=== PATIENT | male | born 2000 | race Caucasian/White ===

== ENCOUNTER 2022-03-22 10:27 | Emergency (ER) | payer SELFPAY ==
[2022-03-22 10:33] VITALS: PULSE 113; RESP 18; TEMP 36.6; O2SAT 97; BMI 25.8
[2022-03-22 15:06] LABS: Basophils # 0.1 10^3/uL (0.0-0.1); Basophils % 0.7 %; Eosinophils % 0.4 %; Hematocrit 46.5 % (42.0-52.0); Hemoglobin 15.3 g/dL (11.7-16.6); Lymphocytes # 1.8 10^3/uL (0.8-4.8); Lymphocytes % 26.3 %; Mean Corpuscular HGB Conc 32.9 g/dL (30.0-36.0); Mean Corpuscular Hemoglobin 28.8 pg (28.0-34.0); Mean Corpuscular Volume 87.4 fl (80-94); Mean Platelet Volume 11.6 fL (7.4-10.4); Monocytes # 0.2 10^3/uL (0.2-0.9); Monocytes % 3.2 %; Neutrophils % 69.3 %; Nucleated Red Blood Cells % 0 %; Platelet Count 237 10^3/cmm (130-400); Red Blood Count 5.32 10^6/uL (4.1-5.3); Red Cell Distribution Width 12.5 % (12.1-15.1); White Blood Count 6.8 10^3/uL (4.0-10.0)
--- NOTE | 2022-03-22 15:13 | PC.NURSE ---
Provider at bedside. Pt sitting up in chair.
[2022-03-22 15:17] VITALS: BP 143/98; PULSE 102; RESP 17; TEMP 36.7
--- NOTE | 2022-03-22 15:17 | W.ED.GENADLT ---
HPI - General Adult General: Chief complaint: Nausea/Vomiting/Diarrhea Stated complaint: substance abuse Time Seen by Provider: 03/22/22 15:09 Source: patient Mode of arrival: ambulatory Limitations: no limitations History of Present Illness: Patient is a 21-year-old male with a longstanding history of fentanyl use here with complaints of opiate withdrawal. Patient states he is feeling restless, is having trouble sleeping, and feels anxious. Patient states he is not having any abdominal pain, vomiting, diarrhea. Vitals upon arrival show some mild tachycardia and very mild hypertension at 140s/90s. Patient states he is not interested in a substance abuse rehabilitation at this time stating that he cannot miss that much work. Last opiate use was approximately 48 hours ago. Onset (ago): day(s) Severity: mild Pain Consistency: constant Associated symptoms: Deny chest pain, dyspnea, headache(s), malaise, nausea, rash, palpitations, syncope or vomiting Treatments prior to arrival: none Review of Systems Const: Denies: fever(s), chills, body aches, fatigue or malaise Eyes: Denies: change in vision or blurry vision Card: Denies: chest pain, palpitations, irregular heart rhythm, lightheadedness, syncope or dyspnea on exertion Resp: Denies: dyspnea, productive cough or pain on inspiration GI: Denies: abdominal pain, nausea, vomiting, heartburn or diarrhea : Denies: difficulty urinating or dysuria Musc: Denies: neck pain, back pain, extremity pain or joint pain Skin/Breast: Denies: rash Neuro: Reports: restless legs; Denies: headache(s), numbness in extremities, weakness in extremities, sensory changes or dizziness Psych: Reports: anxiety PFSH ED PFSH: Medical History No pertinent past medical history Social History Substance/Drug Use: current Physical Exam Const: COMMON NORMALS: no acute distress, average body habitus, patient oriented x3, no limitations, healthy appearing, alert and well nourished GENERAL APPEARANCE: cooperative ORIENTATION/CONSCIOUSNESS: Yes awake, Yes oriented to person, Yes oriented to place and Yes oriented to time HENMT: COMMON NORMALS: normocephalic and atraumatic HEAD & SCALP: normal to inspection, normocephalic and atraumatic Neck/C-Spine: COMMON NORMALS: full ROM, no lymphadenopathy, supple and no meningeal signs Chest: COMMONS NORMALS: normal inspection of the chest Resp: COMMON NORMALS: normal respiratory effort and clear to auscultation bilaterally AUSCULTATION: clear to auscultation bilaterally Cardio: COMMON NORMALS: regular rate and regular rhythm RATE: regular rate RHYTHM: regular rhythm GI: COMMON NORMALS: Normal to inspection, nondistended, normoactive bowel sounds present, Soft to palpation, non-tender, No hepatosplenomegaly present and no masses PALPATION: Yes Soft to palpation and Yes No hepatosplenomegaly present : COMMON NORMALS: Yes no CVA tenderness BLADDER/KIDNEY EXAM: Yes no CVA tenderness Back/Pelvis: COMMON NORMALS: no CVA tenderness and thoracic and lumbar spine normal to inspection Extremity: COMMON NORMALS: normal to inspection GENERAL: Yes normal exam except as noted Neuro: [place] COMA SCALE: document GCS findings [place] coma scale eye opening: Spontaneous [place] coma scale verbal response: Orientated [place] coma scale motor response: Obey commands [place] coma scale total score: 15 COMMON NORMALS: patient oriented x3, CN's II-XII intact bilaterally, moves all extremities, no focal motor deficits, no sensory deficits noted and gait normal SENSORIUM/ORIENTATION: Yes alert, Yes oriented to person, Yes oriented to place and Yes oriented to time MENINGEAL SIGNS: Yes no meningeal signs Skin: COMMON NORMALS: no rashes or lesions noted GENERAL SKIN EXAM: no rashes or lesions noted Course Vital Signs: Vital signs: Vital Signs Temperature 98.1 F 03/22/22 15:17 Pulse Rate 102 H 03/22/22 15:17 Respiratory Rate 17 03/22/22 15:17 Blood Pressure 143/98 03/22/22 15:17 Pulse Oximetry 97 03/22/22 10:33 Oxygen Delivery Me thod 03/22/22 10:33 [facility] - General Adult Medical Decision Making Will place patient on a small amount of clonazepam to help with anxiety/sleep. We will place him on cyclobenzaprine to help with the restless legs/muscle spasms. We will place information with case management to get him a primary care provider. Encouraged drug rehabilitation. Lab Data 03/22/22 14:56 03/22/22 14:56 Laboratory Results WBC 6.8 10^3/uL (4.0-10.0) 03/22/22 14:56 RBC 5.32 10^6/uL (4.1-5.3) H 03/22/22 14:56 Hgb 15.3 g/dL (11.7-16.6) 03/22/22 14:56 Hct 46.5 % (42.0-52.0) 03/22/22 14:56 MCV 87.4 fl (80-94) 03/22/22 14:56 MCH 28.8 pg (28.0-34.0) 03/22/22 14:56 MCHC 32.9 g/dL (30.0-36.0) 03/22/22 14:56 RDW 12.5 % (12.1-15.1) 03/22/22 14:56 Plt Count 237 10^3/cmm (130-400) 03/22/22 14:56 MPV 11.6 fL (7.4-10.4) H 03/22/22 14:56 Neut % (Auto) 69.3 % 03/22/22 14:56 Lymph % (Auto) 26.3 % 03/22/22 14:56 Carlton % (Auto) 3.2 % 03/22/22 14:56 Eos % (Auto) 0.4 % 03/22/22 14:56 Baso % (Auto) 0.7 % 03/22/22 14:56 Neut # (Auto) 4.70 10^3/uL (1.8-7.7) 03/22/22 14:56 Lymph # (Auto) 1.8 10^3/uL (0.8-4.8) 03/22/22 14:56 Carl[place] # (Auto) 0.2 10^3/uL (0.2-0.9) 03/22/22 14:56 Eos # (Auto) 0.0 10^3/uL (0.0-0.8) 03/22/22 14:56 Baso # (Auto) 0.1 10^3/uL (0.0-0.1) 03/22/22 14:56 Nucleated RBC % (auto) 0 % 03/22/22 14:56 Nucleated RBCs # 0.0 /100WBC 03/22/22 14:56 Sodium 144 mmol/L (136-145) 03/22/22 14:56 Potassium 3.6 mmol/L (3.5-5.1) 03/22/22 14:56 Chloride 106 mmol/L (98-107) 03/22/22 14:56 Carbon Dioxide 23 mmol/L (22-29) 03/22/22 14:56 Anion Gap 18.6 (5-19) 03/22/22 14:56 BUN 5 mg/dL (6-20) L 03/22/22 14:56 Creatinine 0.5 mg/dL (0.7-1.2) L 03/22/22 14:56 GFR Calculation 209.9 mL/min (90-130) H 03/22/22 14:56 Glucose 107 mg/dL (65-115) 03/22/22 14:56 Calculated Osmolality 296 mOsm/kg (285-295) H 03/22/22 14:56 Calcium 9.4 mg/dL (8.5-10.5) 03/22/22 14:56 Total Bilirubin 0.4 mg/dL (0.15-1.2) 03/22/22 14:56 AST 24 U/L (0-40) 03/22/22 14:56 ALT 36 U/L (0-41) 03/22/22 14:56 Alkaline Phosphatase 124 U/L (40-130) 03/22/22 14:56 Total Protein 7.7 g/dL (6.6-8.7) 03/22/22 14:56 Albumin 5.1 g/dL (3.5-5.2) 03/22/22 14:56 Globulin 2.6 g/dL (1.3-4.6) 03/22/22 14:56 Discharge Plan Discharge Patient Disposition: Home Clinical Impression: Opiate withdrawal Condition: Stable Prescriptions: New clonazepam 1 mg tablet 0.5 mg PO Q6H Qty: 14 0RF cyclobenzaprine 10 mg tablet 10 mg PO TID Qty: 14 0RF No Action clonidine HCl 0.2 mg tablet 0.1 mg PO Q6H PRN (Reason: withdrawal symptoms) 2 Days Qty: 14 0RF Discharge Orders: Discharge ED (Routine); Ordered 03/22/22 Ordered By: Hannah Hubbard Patient Instructions: Opioid Withdrawal (ED) Activity Restrictions/Additional Instructions: Use the medications sparingly to help with anxiety, restless legs, and anxiety. As we discussed please consider an opiate rehabilitation/treatment facility. Coding Level of Care Code ED It Portfolio Manager for Maren James
--- NOTE | 2022-03-22 15:27 | ECG_ITS ---
[facility] Test Date: 2022-03-22 Pat Name: Rony Camacho Department: Room: Gender: Male Tire Repairer: : [id number] Requested By: Hannah Hubbard Order Number: [id number] Andrew MD: Gemma Gil M.D. Measurements Intervals [place] Rate: 99 P: 31 WV: 158 QRS: -6 QRSD: 98 T: 13 QT: 329 QTc: 424 Interpretive Statements SINUS RHYTHM VOLTAGE CRITERIA FOR LVH [MEETS CRITERIA IN ONE OF: R(aVL), S(V1), R(V5), R(V5/V6)+S(V1)] No previous ECG available for comparison Electronically Signed On 03-22-2022 22:11:06 WIRE PRODUCTS INSPECTOR by Gemma Gil M.D. [email or web address]
[2022-03-22 15:30] LABS: Alanine Aminotransferase 36 U/L (0-41); Albumin Level 5.1 g/dL (3.5-5.2); Alkaline Phosphatase 124 U/L (40-130); Anion Gap 18.6 (5-19); Aspartate Amino Transferase 24 U/L (0-40); Blood Urea Nitrogen 5 mg/dL (6-20); Calcium 9.4 mg/dL (8.5-10.5); Carbon Dioxide 23 mmol/L (22-29); Chloride 106 mmol/L (98-107); Globulin 2.6 g/dL (1.3-4.6); Glomerular Filtration Rate 209.9 mL/min (90-130); Glucose 107 mg/dL (65-115); Osmolality Calculated 296 mOsm/kg (285-295); Potassium 3.6 mmol/L (3.5-5.1); Sodium 144 mmol/L (136-145); Total Bilirubin 0.4 mg/dL (0.15-1.2); Total Protein 7.7 g/dL (6.6-8.7)
--- NOTE | 2022-03-22 16:15 | PC.NURSE ---
Discharge instruction given and signed paper prescriptions given. Patient verbalized understanding. Medication education was given on scripts that were given. Patient was educated on [facility] if needed. verbalized understanding.
--- NOTE | 2022-03-25 13:02 | DCPLANNER ---
homeowner association manager had message to speak with patient about getting established with a primary care physician. Patient stated that he does not want a primary care physician at this time.
== END 2022-03-22 16:15 | disposition home or self-care (01) ==
PROVIDERS: Emergency Provider Physician Assistant
DX: F11.23 Opioid dependence with withdrawal (principal)
CPT/HCPCS: 36415; 80053; 85025; 93005; 99284

== ENCOUNTER 2022-03-23 06:15 | Emergency (ER) | payer SELFPAY ==
[2022-03-23 06:19] VITALS: BP 121/87; PULSE 85; RESP 16; TEMP 36.6; O2SAT 100; BMI 25.8
--- NOTE | 2022-03-23 06:39 | W.ED.GENADLT ---
HPI - General Adult General: Chief complaint: General Medical Stated complaint: MHE; substance abuse Time Seen by Provider: 03/23/22 06:36 Source: patient Mode of arrival: ambulatory Limitations: no limitations History of Present Illness: 21-year-old male has history of fentanyl abuse he states he has not used the last 2 days he states is having difficulty sleeping with some nausea blood pressure here is normal no vomiting here he has been on benzos he denies any other complaints he is not suicidal not homicidal. Associated symptoms: Deny chest pain, dyspnea, headache(s), nausea, rash or vomiting Review of Systems Const: Denies: fever(s), chills, body aches or change in appetite Eyes: Denies: blurry vision or eye discomfort ENMT: Denies: throat pain or dental pain Card: Denies: chest pain Resp: Denies: dyspnea GI: Denies: abdominal pain, nausea, vomiting or diarrhea : Denies: dysuria Musc: Denies: neck pain or back pain Skin/Breast: Denies: rash Neuro: Denies: headache(s) Psych: Denies: depression Anthony/Lymph: Denies: easy bruising All/Imm: Denies: urticaria PFSH ED PFSH: Medical History (Updated 03/23/22 @ 06:43 by Gopal Shine MD) No pertinent past medical history Social History (Updated 03/23/22 @ 06:43 by Gopal Shine MD) Substance/Drug Use: current Physical Exam Const: COMMON NORMALS: no acute distress, patient oriented x3 and healthy appearing HENMT: COMMON NORMALS: normocephalic and atraumatic HEAD & SCALP: normocephalic and atraumatic Eye: COMMON NORMALS: Equal, round and reactive pupils present and EOMs intact bilaterally PUPIL: Yes Equal, round and reactive pupils present Neck/C-Spine: COMMON NORMALS: full ROM and supple Chest: COMMONS NORMALS: normal inspection of the chest and normal palpation of entire chest wall Resp: COMMON NORMALS: normal respiratory effort, No retractions, No use of accessory muscles and clear to auscultation bilaterally AUSCULTATION: clear to auscultation bilaterally Cardio: COMMON NORMALS: regular rate, regular rhythm and No murmurs present (Cardio) RATE: regular rate RHYTHM: regular rhythm GI: COMMON NORMALS: Normal to inspection, nondistended, normoactive bowel sounds present, Soft to palpation, non-tender and no masses PALPATION: Yes Soft to palpation Extremity: COMMON NORMALS: normal to inspection and full ROM Neuro: COMMON NORMALS: patient oriented x3, moves all extremities and no focal motor deficits Psych: COMMON NORMALS: mental status grossly normal, Normal thought process present and cooperative THOUGHT PROCESS: Normal thought process present Skin: COMMON NORMALS: no rashes or lesions noted and no wounds GENERAL SKIN EXAM: no rashes or lesions noted Course Vital Signs: Vital signs: Vital Signs Temperature 97.8 F 03/23/22 06:19 Pulse Rate 85 03/23/22 06:19 Respiratory Rate 16 03/23/22 06:19 Blood Pressure 121/87 03/23/22 06:19 Pulse Oximetry 100 03/23/22 06:19 Oxygen Delivery Me thod 03/23/22 06:19 MDM - General Adult Medical Decision Making Patient presents here with difficulty sleeping with opioid withdrawals he is well-appearing here he is not hypertensive we will give him a dose of Ativan and clonidine we will place him on clonidine over the next 48 hours he is to follow-up with PCP and return if worsening he has no suicidal or homicidal ideations. Discharge Plan Discharge Patient Disposition: Home Clinical Impression: Opiate withdrawal Condition: Stable Prescriptions: New clonidine HCl 0.2 mg tablet 0.1 mg PO Q6H PRN (Reason: withdrawal symptoms) 2 Days Qty: 14 0RF No Action clonazepam 1 mg tablet 0.5 mg PO Q6H Qty: 14 0RF cyclobenzaprine 10 mg tablet 10 mg PO TID Qty: 14 0RF Discharge Orders: Discharge ED (Routine); Ordered 03/23/22 Ordered By: Gopal Shine Discharge Diet: Advance as tolerated Discharge Activity: Use walker/crutches as instructed Patient Instructions: Opioid Withdrawal (ED) Coding Level of Care Code ED Barrel Loader for Maren James
[2022-03-23] MEDS: ketorolac 30 mg/mL INJ IM (06:46)
[2022-03-23] MEDS: cloNIDine 0.1 mg Tablet PO (06:46)
[2022-03-23] MEDS: LORazepam 2 mg/mL INJ 1 mL IM (06:49)
[2022-03-23 06:51] VITALS: PULSE 82; RESP 14; O2SAT 98
== END 2022-03-23 06:55 | disposition home or self-care (01) ==
PROVIDERS: Emergency Provider Emergency Medicine
DX: F11.23 Opioid dependence with withdrawal (principal)
CPT/HCPCS: 96372; 99284; J1885; J2060

== ENCOUNTER 2023-01-05 21:51 | Emergency (ER) | payer SELFPAY ==
--- NOTE | 2023-01-05 21:52 | ED_ITS ---
HPI - Dental/Oral General: Chief complaint: Dental/Oral Stated complaint: Toothache Time Seen by Provider: 01/05/23 21:52 Source: patient Mode of arrival: ambulatory Limitations: no limitations History of Present Illness: Patient is a 22-year-old male who presents to the ED today for evaluation of dental pain. He states he has pain and decay to his lower molars. He states he has had pain in these areas for years but pain has recently worsened. States he has no insurance. Just moved to [place] and has not applied for Medicaid yet. He has not noticed any facial/neck swelling. No trouble eating/drinki ng/articulating/controlling secretions. No fevers. MD Complaint: tooth pain Onset (ago): year(s) Duration: constant Severity: moderate Relieving factors: nothing Exacerbating factors: nothing Context: history of dental caries and poor dental care Associated symptoms: Reports no associated symptoms; Denies fever(s) or odynophagia Treatment prior to arrival: none Review of Systems Const: Denies: fever(s), chills, body aches, fatigue or malaise ENMT: Reports: dental pain; Denies: throat pain, enlarged tonsils, odynophagia, hoarseness, swelling of lips/tongue, oral sores or bleeding gums Card: Denies: chest pain GI: Denies: nausea or vomiting Musc: Denies: neck pain Neuro: Denies: headache(s) PFSH ED PFSH: Medical History No pertinent past medical history Social History Substance/Drug Use: current Physical Exam Const: COMMON NORMALS: no acute distress, average body habitus, patient oriented x3, no limitations, healthy appearing, alert and well nourished HENMT: FACE & SINUS: normal facial exam; no erythema and no edema MOUTH: Normal oral and palatal mucosa present, lip normal and tongue normal; no audible dysphonia and no drooling TEETH & GINGIVA: Yes poor dentition TEETH & GINGIVA IMAGES: 1. significantly decayed molar; no swelling/abscess 2. significant molar decay; no swelling/abscess THROAT: posterior oropharynx normal, tonsils normal and uvula midline Eye: GENERAL EYE: appearance normal, both eyes and all related structures Neck/C-Spine: GENERAL: Yes normal visual inspection, No anterior neck swelling and No submandibular swelling Resp: COMMON NORMALS: normal respiratory effort Neuro: COMMON NORMALS: patient oriented x3 SENSORIUM/ORIENTATION: Yes alert Course Vital Signs: Vital signs: Vital Signs Temperature 97.8 F 01/05/23 21:56 Pulse Rate 93 01/05/23 21:56 Respiratory Rate 20 H 01/05/23 21:56 Blood Pressure 141/88 01/05/23 21:56 Pulse Oximetry 100 01/05/23 21:56 MDM - Dental/Oral Medical Decision Making Patient will be placed on antibiotics and given dental resources for follow-up. Return ED precautions given. Differential Diagnosis Likely dental caries, toothache and dental abscess Medical Records I reviewed the patient's medical records. No radiology studies performed this visit Discharge Plan Discharge Patient Disposition: Home Clinical Impression: Dental caries Condition: Stable Prescriptions: New penicillin V potassium 500 mg tablet 500 mg PO Q8H 7 Days Qty: 21 0RF No Action clonazepam 1 mg tablet 0.5 mg PO Q6H Qty: 14 0RF cyclobenzaprine 10 mg tablet 10 mg PO TID Qty: 14 0RF Discharge Orders: Discharge ED (Routine); Ordered 01/05/23 Ordered By: Hannah Hubbard Stand Alone Forms: Work/School Release Coding Level of Care Code ED Medical Secretary Receptionist for Maren James
[2023-01-05 21:56] VITALS: BP 141/88; PULSE 93; RESP 20; TEMP 36.6; O2SAT 100; BMI 25.8
== END 2023-01-05 22:35 | disposition home or self-care (01) ==
PROVIDERS: Emergency Provider Physician Assistant
DX: K02.9 Dental caries, unspecified (principal)
CPT/HCPCS: 99283

== ENCOUNTER 2023-02-25 22:39 | Emergency (ER) | payer SELFPAY ==
--- NOTE | 2023-02-25 22:40 | XRR_ITS ---
PROCEDURE INFORMATION: Exam: XR Chest Exam date and time: 02/25/2023 10:52 PM Age: 22 years old Clinical indication: Patient HX: Terrible cough, congestion, fever TECHNIQUE: Imaging protocol: Radiologic exam of the chest. Views: 1 view. COMPARISON: No relevant prior studies available. FINDINGS: Lungs: No consolidation, mass, or pulmonary edema. Pleural spaces: Unremarkable. No pleural effusion. No pneumothorax. Heart/Mediastinum: Cardiomediastinal silhouette is within normal limits. Bones/joints: Unremarkable. XR/XR chest 1V portable [id number] IMPRESSION: No acute findings.
[2023-02-25 22:56] VITALS: BP 186/112; PULSE 13; RESP 17; TEMP 36.8; O2SAT 96; BMI 28.7
--- NOTE | 2023-02-25 23:03 | W.ED.SOB ---
HPI - SOB/Dyspnea General: Chief Complaint: Upper Respiratory Infection Stated Complaint: Cough\Conjested Time Seen by Provider: 02/25/23 22:40 History of Present Illness: HPI Narrative: Rony Camacho is a 22-year-old male that presents to the emergency department with complaints of cough, congestion, shortness of breath and fever. Patient reports has had symptoms for about 3 to 4 weeks and initially he ran pretty high fevers with this. That seems to have passed however he has had a continued cough and congestion and now has become pretty short of breath. Patient does have some abdominal discomfort that is associated with his cough. He denies nausea vomiting or diarrhea Patient denies chest pain He denies headache. Does report sore throat and right ear pain. His cough is productive but is changed from green to white Review of Systems General: Reports: 10 or more systems reviewed and unremarkable except in HPI and below PFSH ED PFSH: Medical History No pertinent past medical history Social History Substance/Drug Use: current Physical Exam Const: COMMON NORMALS: no acute distress, patient oriented x3 and alert GENERAL APPEARANCE: cooperative ORIENTATION/CONSCIOUSNESS: Yes awake, Yes oriented to person, Yes oriented to place and Yes oriented to time HENMT: COMMON NORMALS: normocephalic, atraumatic, external ears normal, EAC's normal and TM's normal bilaterally HEAD & SCALP: normocephalic and atraumatic FACE & SINUS: normal facial exam GENERAL EAR: hearing grossly impaired EXTERNAL EAR: Yes external ears normal and Yes mastoids normal EXTERNAL AUDITORY CANAL: EAC's normal TYMPANIC MEMBRANE: TM's normal bilaterally MOUTH: Normal oral and palatal mucosa present THROAT: uvula midline and posterior oropharynx abnormal cobblestoning and erythema Eye: COMMON NORMALS: Equal, round and reactive pupils present, EOMs intact bilaterally, conjunctivae normal and no scleral icterus GENERAL EYE: appearance normal, both eyes and all related structures ALIGNMENT: Yes alignment normal PERIORBITAL: periorbital findings normal CONJUNCTIVA: Yes conjunctivae normal PUPIL: Yes Equal, round and reactive pupils present Neck/C-Spine: COMMON NORMALS: full ROM GENERAL: Yes normal visual inspection Lymph: LYMPHATIC: no lymphadenopathy noted Chest: COMMONS NORMALS: normal inspection of the chest Breast/axilla inspection: Yes no chest deformity, asymmetry, normal contours, no nodules, masses, tenderness Resp: COMMON NORMALS: No use of accessory muscles EFFORT & INSPECTION: Yes able to speak in complete sentences, Yes symmetric chest movement, Yes tachypneic, Yes Actively coughing productive, No retractions and Yes audible wheezes AUSCULTATION: rhonchi throughout and wheezes expiratory wheezes, left upper and right upper Cardio: COMMON NORMALS: regular rate, regular rhythm and Peripheral pulses 2+ throughout RATE: regular rate RHYTHM: regular rhythm PERIPHERAL PULSES: Peripheral pulses 2+ throughout GI: COMMON NORMALS: Normal to inspection, nondistended, normoactive bowel sounds present, Soft to palpation, non-tender and No hepatosplenomegaly present INSPECTION: Yes normal to inspection AUSCULTATION: Yes normoactive bowel sounds PALPATION: Yes Soft to palpation and Yes No hepatosplenomegaly present Extremity: COMMON NORMALS: normal to inspection GENERAL: Yes normal exam except as noted Neuro: COMMON NORMALS: patient oriented x3 SENSORIUM/ORIENTATION: Yes alert, Yes oriented to person, Yes oriented to place and Yes oriented to time CRANIAL NERVES: Yes CN normal except as noted Psych: COMMON NORMALS: mental status grossly normal, Normal thought process present, cooperative, activity/motor behavior normal, denies homicidal ideation and denies suicidal ideation THOUGHT PROCESS: Normal thought process present Skin: COMMON NORMALS: no rashes or lesions noted, no wounds and turgor normal GENERAL SKIN EXAM: no rashes or lesions noted and turgor normal Course Vital Signs: Vital signs: Vital Signs Temperature 97.7 F 02/25/23 23:26 Pulse Rate 99 02/26/23 00:37 Respiratory Rate 18 02/26/23 00:37 Blood Pressure 125/69 02/26/23 00:37 Pulse Oximetry 90 02/26/23 00:37 Oxygen Delivery Me thod Room Air 02/26/23 00:37 MDM - SOB/Dyspnea Medical Decision Making Patient evaluated in the emergency department today for cough, fever, shortness of breath. Patient underwent chest x-ray He underwent influenza and COVID testing He has been wheezing and rhonchi. He was treated with DuoNeb and Depo-Medrol IM. Respiratory lua he is doing much better after his Depo-Medrol and DuoNeb treatment. Oxygen saturation is 97 and his heart rates around 80-90. He does not require any oxygen. Chest x-ray does not reveal any definite consolidation however with his history of recent illness we are going to send him home on a short course of antibiotics and 5-day course of prednisone. Lab Data Labs/Radiology: Laboratory Results Influenza Type A Ag negative (Negative) 02/25/23 23:00 Influenza Type B Ag negative (Negative) 02/25/23 23:00 SARS-CoV-2 Ag (Rapid) negative (Negative) 02/25/23 23:00 XR interpretation done by ED provider, pending radiology final review Discharge Plan Discharge Patient Disposition: Home Clinical Impression: Pneumonia, Pharyngitis Condition: Stable Prescriptions: New prednisone 20 mg tablet 20 mg PO DAILY 5 Days Qty: 5 0RF doxycycline hyclate 100 mg capsule 100 mg PO BID 5 Days Qty: 10 0RF albuterol sulfate 90 mcg/actuation HFA aerosol inhaler 2 inh inhalation QID Qty: 8.5 0RF No Action clonazepam 1 mg tablet 0.5 mg PO Q6H Qty: 14 0RF cyclobenzaprine 10 mg tablet 10 mg PO TID Qty: 14 0RF Discharge Orders: Discharge ED (Routine); Ordered 02/26/23 Ordered By: Waylon Williamson Discharge Diet: Advance as tolerated Discharge Activity: Resume usual activity Patient Instructions: Pharyngitis (ED), Pneumonia (ED), Pain Management Activity Restrictions/Additional Instructions: Your COVID and influenza negative. He did have good response to the albuterol nebulizer treatments so I am sending you home with albuterol inhaler. Doxycycline is an antibiotic that you can take twice a day for the next 5 days. You are also going to have a prescription of prednisone steroid to help with inflammation. Drink plenty of fluids Get plenty of rest Monitor symptoms closely and return to the emergency department for new, concerning, worsening symptoms Coding Level of Care Code ED Domestic Violence Advocate for Maren James
[2023-02-25] MEDS: methylPREDNISolone (DEPO) 80 MG/ML INJ 1 mL IM (23:15)
[2023-02-25] MEDS: ipratropium-albuterol 3 mL Neb INHALATION (23:19)
[2023-02-25 23:20] VITALS: PULSE 100; RESP 18; O2SAT 97
[2023-02-25 23:25] LABS: Influenza A by IFA negative (Negative); Influenza B by IFA negative (Negative)
[2023-02-25 23:26] VITALS: TEMP 36.5
[2023-02-25 23:49] LABS: SARS Covid-2 Antigen negative (Negative)
[2023-02-26 00:37] VITALS: BP 125/69; PULSE 99; RESP 18; O2SAT 90
[2023-02-26 00:59] VITALS: PULSE 91; RESP 17; O2SAT 96
[2023-02-26] MEDS: ipratropium-albuterol 3 mL Neb INHALATION (00:59)
[2023-02-26 01:12] VITALS: BP 125/69; PULSE 91; RESP 17; TEMP 36.5; O2SAT 96
== END 2023-02-26 01:14 | disposition home or self-care (01) ==
PROVIDERS: Emergency Medicine; Emergency Provider Nurse Practitioner
DX: J18.9 Pneumonia, unspecified organism (principal); J02.9 Acute pharyngitis, unspecified; Z11.52 Encounter for screening for COVID-19
CPT/HCPCS: 71045; 87426; 87804; 94640; 96372; 99284; J1040